=== PATIENT | female | born 1990 | race Caucasian/White ===

== ENCOUNTER 2021-04-12 13:21 | Emergency (ER) | payer OTHER ==
[~2021-04-12] VITALS: Ht 162.6 cm; Wt 67.1 kg
--- NOTE | 2021-04-12 13:51 | NUR ---
DR TELLEZ AT BEDSIDE FOR EVAL.
--- NOTE | 2021-04-12 14:51 | NUR ---
Female director of managed care accompanied female patient for [employer] service [employer].
[2021-04-12 15:00] LABS: *BILIRUBIN,URIN NEGATIVE (NEGATIVE); *CLARITY,URINE CLEAR (CLEAR); *COLOR,URINE YELLOW (YELLOW); *KETONES,URINE NEGATIVE (NEGATIVE); *UROBILINOGEN,URINE 0.2 E.U./dl (NORMAL); LEUKOCYTE ESTERASE ,URINE NEGATIVE (NEGATIVE); NITRITE, URINE NEGATIVE (NEGATIVE); UGLUCOSE NEGATIVE (NEGATIVE)
[2021-04-12 15:11] LABS: *BLOOD, URINE TRACE (NEGATIVE)
[2021-04-12 15:26] LABS: HEMATOCRIT 41.3 % (31.2-41.9); MEAN CORPUSCULAR HEMOGLOBIN 28.7 uug (24.7-32.8); PLATELET COUNT (AUTO) 291 K/uL (179-408)
[2021-04-12 15:28] LABS: CARBON DIOXIDE 25 mmol/L (21-32); CHLORIDE 101 mmol/L (98-107); CREATININE 0.5 mg/dL (0.6-1.3); GLUCOSE 98 mg/dL (74-106); POTASSIUM 3.6 mmol/L (3.5-5.1); UREA NITROGEN, BLOOD 9 mg/dL (7-18)
[2021-04-12 15:40] LABS: ALANINE AMINOTRANSFERASE 24 U/L (14-59); ALKALINE PHOSPHATASE 53 U/L (50-136); ASPARTATE AMINOTRANSFERASE 18 U/L (15-37); BILIRUBIN,DIRECT < 0.1 mg/dL (0.0-0.2); BILIRUBIN,TOTAL 0.2 mg/dL (0.2-1.0); TOTAL PROTEIN, SERUM 8.3 g/dL (6.4-8.2)
[2021-04-12 15:52] VITALS: BP 132/75
--- NOTE | 2021-04-12 15:53 | NUR ---
Patient discharged to home in stable condition. Written and verbal after care instructions given. Patient verbalizes understanding of instructions. Verbalized understanding of making an appointment with her OBGYN ade. Stressed follow up or return to ER for worsening s/s.
[2021-04-12 17:17] LABS: BACTERIA,URINE FEW /HPF (NONE SEEN); SQUAMOUS EPITHELIAL CELL,UR FEW /HPF (NONE SEEN)
== END 2021-04-12 15:54 | disposition home or self-care (01) ==
LOC: ER 14:26
DX: Z04.1 Encounter for examination and observation following transport accident (principal); O02.1 Missed abortion; Z3A.09 9 weeks gestation of pregnancy
CPT/HCPCS: 36415; 76856; 85025; 86850; 86900; 86901; A4663